=== PATIENT | female | born 1955 | race Caucasian/White ===

== ENCOUNTER 2016-11-21 08:16 | Emergency (ER) | payer BC ==
[2016-11-21] MEDS ORDERED: MULTIVITAMIN PO (08:28)
[2016-11-21] MEDS ORDERED: SYMAX DUOTAB0.375 MG PO (08:28)
[2016-11-21] MEDS ORDERED: NADOLOL80 M1 PO (08:28)
[2016-11-21] MEDS ORDERED: ASPIR-TRIN325 M2 PO (08:28)
[2016-11-21] MEDS ORDERED: NIACIN250 M2 PO (08:29)
[2016-11-21] MEDS ORDERED: ESTROGEN CREAM TOP (08:29)
[2016-11-21] MEDS ORDERED: CALCIUM + D3 E1 EAC2 PO (08:29)
== END 2016-11-21 09:20 ==
LOC: EDMED 08:16
DX: R04.0 Epistaxis (principal)